=== PATIENT | female | born 1980 | race Caucasian/White ===

== ENCOUNTER 2019-06-07 05:20 | Inpatient (IN) | payer MEDICAID ==
[~2019-06-07] VITALS: Ht 152.4 cm; Wt 83.5 kg
[2019-06-07] MEDS ORDERED: TERBUTALINE SULFATE 1MG/ML VIAL SUBCUT ONE (05:45)
[2019-06-07] MEDS ORDERED: LACTATED RINGERS 1,000 ML IV SCH ×2 (05:45→07:30)
[2019-06-07] MEDS ORDERED: METHYLERGONOVINE MALEATE 0.2 MG/ML IM PRN (07:00)
[2019-06-07] MEDS ORDERED: MISOPROSTOL 100MCG TABLET VG SCH (07:00)
[2019-06-07] MEDS ORDERED: CITRIC ACID/SODIUM CITRATE SOLN 30ML UDC PO SCH (07:15)
[2019-06-07] MEDS ORDERED: ONDANSETRON HCL 4MG/2ML INJ ONE (07:19)
[2019-06-07] MEDS ORDERED: MORPHINE SULFATE/PF 1MG/ML 10ML AMP ONE (07:19)
[2019-06-07] MEDS ORDERED: METOCLOPRAMIDE HCL 10MG/2ML VIAL ONE (07:19)
[2019-06-07] MEDS ORDERED: PHENYLEPHRINE HCL 10 MG/ML 1ML (IV VIAL) IV ONE (07:19)
[2019-06-07] MEDS ORDERED: EPHEDRINE SULFATE 50MG/ML VIAL ONE (07:19)
[2019-06-07] MEDS ORDERED: CEFAZOLIN SODIUM 1000MG/VIAL ONE (07:19)
[2019-06-07] MEDS ORDERED: FENTANYL CITRATE/PF 50MCG/ML 2ML VIAL ONE (07:19)
[2019-06-07] MEDS ORDERED: OXYTOCIN 10 UNITS/ML 1ML ONE ×2 (07:19→08:05)
[2019-06-07] MEDS ORDERED: GLYCOPYRROLATE 0.2 MG/ML 2ML VIAL ONE (07:19)
[2019-06-07 07:21] LABS: BASOPHILS % 0.2 % (0.0-2.0); EOSINOPHILS % 0.1 % (0.0-5.0); HEMATOCRIT. 37.9 % (36.0-48.0); HEMOGLOBIN. 12.4 g/dL (12.0-16.0); LYMPHOCYTES % 13.2 % (20.0-50.0); MEAN CORPUSCULAR HEMOGLOBIN 28.2 pg (28.0-32.0); MEAN CORPUSCULAR VOLUME 85.8 fL (81.0-99.0); MEAN PLATELET VOLUME 11.2 fl (7.4-10.4); MONOCYTES % 5.8 % (2.0-8.0); NEUTROPHILS % 80.7 % (40.0-76.0); PLATELET 153 x1000/uL (130-400); RED BLOOD CELL COUNT 4.41 mill/uL (4.2-5.4); RED CELL DISTRIBUTION WIDTH 17.1 % (11.6-14.6)
[2019-06-07] MEDS ORDERED: DEXT 5%/LR + PITOCIN 20UNITS/L 1,000 ML IV SCH (07:30)
[2019-06-07 07:40] LABS: INR 0.9; PARTIAL THROMBOPLASTIN TIME 27.8 sec (23.4-31.0); PROTHROMBIN TIME 9.5 sec (9.6-11.0)
[2019-06-07] MEDS ORDERED: KETOROLAC 60MG/2ML VIAL IM ONE (08:05)
[2019-06-07 08:14] LABS: HEPATITIS B SURFACE ANTIGEN NEGATIVE
[2019-06-07] MEDS: KETOROLAC 30MG/ML VIAL IV SCH ×2 (09:00→23:45)
[2019-06-07] MEDS ORDERED: NALOXONE HCL 0.4 MG/ML 1ML VIAL IV PRN (09:00)
[2019-06-07] MEDS ORDERED: BUTORPHANOL TARTRATE 2 MG/ML VIAL IV PRN (09:00)
[2019-06-07] MEDS: DIPHENHYDRAMINE 50MG/ML VIAL IV PRN (09:17)
[2019-06-07] MEDS ORDERED: IBUPROFEN 400MG TABLET PO PRN (11:45)
[2019-06-07] MEDS ORDERED: BISACODYL 10MG SUPP PR PRN (11:45)
[2019-06-07] MEDS ORDERED: ONDANSETRON HCL 4MG/2ML INJ IV PRN (11:45)
[2019-06-07] MEDS ORDERED: LANOLIN OINT 7GM TUBE TOP PRN (11:45)
[2019-06-07] MEDS ORDERED: RHO(D) IMMUNE GLOBULIN 300 MCG/SYR IM PRN (11:45)
[2019-06-07 12:00] VITALS: BP 117/66
[2019-06-07 12:42] LABS: CLARITY URINE CLEAR (CLEAR); COLOR URINE YELLOW (YELLOW); KETONES URINE 1+ (NEGATIVE); LEUKOCYTE ESTERASE URINE NEGATIVE (NEGATIVE); NITRITE URINE NEGATIVE (NEGATIVE); OCCULT BLOOD URINE NEGATIVE (NEGATIVE); PROTEIN URINE NEGATIVE (NEGATIVE); SPECIFIC GRAVITY URINE 1.005 (1.005-1.030); UROBILINOGEN URINE 0.2 E.U./dL (0.2-1.0)
[2019-06-07 12:51] LABS: METHADONE URINE SCREEN NEGATIVE (NEGATIVE); OPIATES URINE SCREEN NEGATIVE (NEGATIVE)
[2019-06-07 12:52] LABS: *AMPHETAMINES SCREEN URINE NEGATIVE (NEGATIVE); *BARBITURATES SCREEN URINE NEGATIVE (NEGATIVE); *BENZODIAZEPINES SCREEN URINE NEGATIVE (NEGATIVE); *COCAINE SCREEN URINE NEGATIVE (NEGATIVE); CANNABINOID URINE SCREEN NEGATIVE (NEGATIVE); PHENCYCLIDINE URINE SCREEN NEGATIVE (NEGATIVE)
[2019-06-07 13:30] VITALS: BP 134/69
[2019-06-07 15:00] VITALS: BP 130/72
[2019-06-07] MEDS: DEXT 5%/LR + PITOCIN 20UNITS/L 1,000 ML IV SCH (16:46)
[2019-06-07 20:00] VITALS: BP 105/58
[2019-06-07] MEDS: DOCUSATE SODIUM 100MG CAPSULE PO SCH (20:47)
[2019-06-07 23:40] VITALS: BP 112/60
[2019-06-08] MEDS: DEXT 5%/LR + PITOCIN 20UNITS/L 1,000 ML IV SCH (01:43)
[2019-06-08] MEDS: DIPHENHYDRAMINE 50MG/ML VIAL IV PRN (02:02)
[2019-06-08 04:05] VITALS: BP 115/64
[2019-06-08 06:38] LABS: BASOPHILS % 0.2 % (0.0-2.0); EOSINOPHILS % 0.5 % (0.0-5.0); HEMATOCRIT. 26.8 % (36.0-48.0); HEMOGLOBIN. 9.1 g/dL (12.0-16.0); LYMPHOCYTES % 18.7 % (20.0-50.0); MEAN CORPUSCULAR HEMOGLOBIN 29.2 pg (28.0-32.0); MEAN CORPUSCULAR VOLUME 85.9 fL (81.0-99.0); MEAN PLATELET VOLUME 10.5 fl (7.4-10.4); MONOCYTES % 6.6 % (2.0-8.0); PLATELET 121 x1000/uL (130-400); RED BLOOD CELL COUNT 3.12 mill/uL (4.2-5.4); RED CELL DISTRIBUTION WIDTH 17.3 % (11.6-14.6)
[2019-06-08] MEDS: PRENATAL VIT/FE FUMARATE/FA TABLET PO SCH (07:33)
[2019-06-08] MEDS: IBUPROFEN 800MG TABLET PO PRN ×2 (07:33→16:00)
[2019-06-08 08:00] VITALS: BP 116/77
[2019-06-08 12:00] VITALS: BP 121/75
[2019-06-08] MEDS: HYDROCODONE/ACETAMINOPHEN 5/325MG TABLET PO PRN ×2 (12:25→20:41)
[2019-06-08 16:39] VITALS: BP 124/66
[2019-06-08] MEDS: DOCUSATE SODIUM 100MG CAPSULE PO SCH (20:40)
[2019-06-08 20:41] VITALS: BP 113/64
[2019-06-09] VITALS: BP 111/63
[2019-06-09] MEDS: IBUPROFEN 800MG TABLET PO PRN ×3 (03:02→18:00)
[2019-06-09 04:00] VITALS: BP 108/65
[2019-06-09] MEDS: PRENATAL VIT/FE FUMARATE/FA TABLET PO SCH (08:57)
[2019-06-09 09:00] VITALS: BP 119/60
[2019-06-09] MEDS: HYDROCODONE/ACETAMINOPHEN 5/325MG TABLET PO PRN (13:42)
[2019-06-09 17:36] VITALS: BP 106/54
[2019-06-09] MEDS ORDERED: INFLUENZA VIRUS VACCINE(AFLURIA) 0.5ML SYR IM ONE (18:00)
[2019-06-09] MEDS ORDERED: TETANUS, DIPHTHERIA, PERTUSSIS VAC/PF 0.5ML (>7YR OLD) IM ONE (18:30)
[2019-06-09 20:00] VITALS: BP 101/61
[2019-06-09] MEDS: DOCUSATE SODIUM 100MG CAPSULE PO SCH (21:33)
[2019-06-10] VITALS: BP 111/70
[2019-06-10] MEDS: IBUPROFEN 800MG TABLET PO PRN ×2 (03:20→10:26)
[2019-06-10 04:00] VITALS: BP 101/64
[2019-06-10 07:46] VITALS: BP 115/62
[2019-06-10] MEDS: PRENATAL VIT/FE FUMARATE/FA TABLET PO SCH (08:18)
[2019-06-10] MEDS ORDERED: MEDROXYPROGESTERONE ACETATE 150MG/ML VIAL IM NR (09:00)
[2019-06-10] MEDS ORDERED: INFLUENZA VIRUS VACCINE(AFLURIA) 0.5ML SYR IM ONE (09:00)
== END 2019-06-10 11:30 | disposition home or self-care (01) | DRG 540 ==
LOC: EDBD 05:20 → 8 EST LDRP 05:20 → OBSVTOIN 05:20 → 8EST 12:00
PROVIDERS: ADMIT Obstetrics & Gynecology; ATTEND Obstetrics & Gynecology
PROC: 10D00Z1 Extraction of Products of Conception, Low, Open Approach (ICD-10-PCS; principal; 2019-06-07)
DX: O34.211 Maternal care for low transverse scar from previous cesarean delivery (principal); D62 Acute posthemorrhagic anemia; Z37.0 Single live birth; O99.02 Anemia complicating childbirth; Z3A.37 37 weeks gestation of pregnancy
CPT/HCPCS: 36415; 80305; 81003; 86592; 86703; 86762; 86850; 86900; 87340; 88307; 90686; 90715; 99281; G0378; J0690; J1050; J1200; J1885; J2274; J2370; J2405; J2590; J2765; J3010; J3105; J3490

== ENCOUNTER 2024-06-08 05:33 | Day surgery (SDC) | payer MEDICAID ==
[~2024-06-08] VITALS: Ht 149.9 cm; Wt 68.0 kg
[~2024-06-08 05:33] MED LIST: METF-414 PO
[2024-06-08 06:03] LABS: UCG KIT LOT# 847686; UCG SCREEN NEGATIVE
[2024-06-08] MEDS: SODIUM CHLORIDE 0.9% 1,000 ML IV SCH (06:41)
[2024-06-08] MEDS ORDERED: BUPIVACAINE HCL/PF 0.5% (5MG/ML) 10ML ONE (06:46)
[2024-06-08] MEDS ORDERED: SKIN ADHESIVE 0.7 GM EA TOP ONE (06:46)
[2024-06-08] MEDS ORDERED: GLYCOPYRROLATE 0.2 MG/ML 2ML VIAL IV PRN (07:30)
[2024-06-08] MEDS ORDERED: HYDROMORPHONE HCL/PF 1MG/ML INJ IV PRN ×3 (07:30)
[2024-06-08] MEDS ORDERED: ONDANSETRON HCL 4MG/2ML INJ IV PRN ×2 (07:30→09:15)
[2024-06-08] MEDS ORDERED: LABETALOL 5MG/ML 4ML INJ IV PRN ×2 (07:30→09:15)
[2024-06-08] MEDS ORDERED: NALOXONE HCL 0.4MG/ML VIAL IV PRN (08:15)
[2024-06-08] MEDS ORDERED: PROPOFOL 200MG/20ML VIAL IV ONE (08:49)
[2024-06-08] MEDS ORDERED: MIDAZOLAM HCL 2 MG/2 ML VIAL ONE (08:50)
[2024-06-08] MEDS ORDERED: FENTANYL CITRATE/PF 50MCG/ML 2ML VIAL ONE ×2 (08:50→09:50)
[2024-06-08] MEDS ORDERED: LIDOCAINE HCL 1% 20ML VIAL ONE (08:51)
[2024-06-08] MEDS ORDERED: DEXAMETHASONE 4MG/ML 1ML VIAL ONE (08:58)
[2024-06-08] MEDS ORDERED: NEOSTIGMINE METHYLSULFATE 1MG/ML 10 ML VIAL ONE (08:58)
[2024-06-08] MEDS ORDERED: ONDANSETRON HCL 4MG/2ML INJ ONE (08:58)
[2024-06-08] MEDS ORDERED: ROCURONIUM BROMIDE 10MG/ML VIAL 5ML IV ONE (08:58)
[2024-06-08] MEDS ORDERED: GLYCOPYRROLATE 0.2 MG/ML 2ML VIAL ONE ×2 (08:59)
[2024-06-08] MEDS ORDERED: MEPERIDINE HCL/PF 25MG/ML CPJ IV PRN (09:15)
[2024-06-08] MEDS ORDERED: SUGAMMADEX SODIUM 200MG/2ML VIAL IV ONE (09:31)
[2024-06-08] MEDS: HYDRALAZINE 20MG/ML VIAL IV PRN (10:21)
[2024-06-08] MEDS: HYDROMORPHONE HCL/PF 1MG/ML INJ IV PRN (10:52)
[2024-06-08 11:52] VITALS: BP 111/61; PULSE 84; RESP 19
[2024-06-08] MEDS: ACETAMINOPHEN WITH CODEINE 300/30MG TABLET PO NR (11:52)
== END 2024-06-08 13:05 | disposition home or self-care (01) ==
LOC: OR 05:33
PROVIDERS: ATTEND Surgery
DX: K80.10 Calculus of gallbladder with chronic cholecystitis without obstruction (principal); E11.9 Type 2 diabetes mellitus without complications; M19.90 Unspecified osteoarthritis, unspecified site; Z79.84 Long term (current) use of oral hypoglycemic drugs; Z79.899 Other long term (current) drug therapy; Z98.890 Other specified postprocedural states
CPT/HCPCS: 47562; 88304; 81025; 82962; J3010; J3490 ×4; J1100; J0360; J2250; J2405; J2704; J1171; J7030; J2710